=== PATIENT | male | born 1980 | race Caucasian/White ===

== ENCOUNTER 2018-05-08 20:42 | Emergency (ER) | payer OTHER ==
[~2018-05-08] VITALS: Ht 180.3 cm; Wt 108.0 kg
[~2018-05-08 20:42] MED LIST: ASPIR-TRIN325 M1 PO; LOPRESSOR25 MG PO; NOHOMEMEDS; PERCOCET 5/31 TABLET PO; PROTONIX40 MG PO; Phenergan PO; SILVADENE20 GM TP; Vicodin,Lortab 5/500 PO
[2018-05-08] MEDS ORDERED: MOTRIN600 MG PO (21:19)
[2018-05-08] MEDS ORDERED: PERCOCET 5/31 TABLET PO (21:19)
[2018-05-08 21:40] VITALS: BP 144/96
== END 2018-05-08 21:41 | disposition home or self-care (01) ==
LOC: EME 20:42
DX: S20.219A Contusion of unspecified front wall of thorax, initial encounter (principal); W14.XXXA Fall from tree, initial encounter; W22.8XXA Striking against or struck by other objects, initial encounter; Y92.814 Boat as the place of occurrence of the external cause; Z87.891 Personal history of nicotine dependence; Z95.9 Presence of cardiac and vascular implant and graft, unspecified; Z90.49 Acquired absence of other specified parts of digestive tract
CPT/HCPCS: 71046; 99281; 99284